=== PATIENT | female | born 1985 | race Caucasian/White ===

== ENCOUNTER → 2018-07-17 | Outpatient (CLI) | payer OTHER | LOC: MAMMO 07:19 | DX: N64.4 Mastodynia (principal) ==

== ENCOUNTER → 2020-02-22 | Outpatient (CLI) | payer OTHER | LOC: RAD 09:54 | DX: R07.89 Other chest pain (principal) ==

== ENCOUNTER → 2021-06-02 | Outpatient (CLI) | payer BC | LOC: RAD 07:43 | DX: R10.11 Right upper quadrant pain (principal); R10.30 Lower abdominal pain, unspecified ==

== ENCOUNTER → 2023-04-04 | Outpatient (CLI) | payer BC | LOC: RAD 10:29 | DX: M47.812 Spondylosis without myelopathy or radiculopathy, cervical region (principal) ==

== ENCOUNTER 2023-04-13 14:30 | Outpatient (RCR) | payer BC | END 2023-04-24 | LOC: PT | DX: M25.511 Pain in right shoulder (principal); M54.2 Cervicalgia ==

== ENCOUNTER 2023-04-26 08:00 | Outpatient (RCR) | payer BC | END 2023-05-25 | disposition home or self-care (01) | LOC: PT | DX: M54.2 Cervicalgia (principal) ==